=== PATIENT | female | born 1965 | race Caucasian/White ===

== ENCOUNTER → 2022-11-02 16:59 | Outpatient (CLI) | payer BC, SELFPAY ==
--- NOTE | ~2022-11-02 | XR_ITS ---
XR chest 2V DATE: 11/02/2022 17:13 INDICATION: Acute cough for 2 days. Wheezing. TECHNIQUE: PA and lateral views COMPARISON: None FINDINGS: Normal heart size. No hilar or mediastinal enlargement. No pulmonary X-ray or consolidation , pleural effusion or pulmonary vascular congestion or pneumothorax. Minimal dextroscoliosis of the thoracic spine. IMPRESSION: No active cardiopulmonary disease Reviewed, dictated and finalized at location B.
== END ==
PROVIDERS: PCP Family Medicine; Visit Provider Family Medicine
DX: R05.1 Acute cough (principal)
CPT/HCPCS: 71046